=== PATIENT | male | born 1960 | race Caucasian/White ===

== ENCOUNTER 2020-08-09 15:12 | Outpatient (CLI) | payer MEDICARE, SELFPAY ==
[2020-08-09 15:31] LABS: Hematocrit 29.7 % (40.0-54.0); Hemoglobin 9.8 g/dL (14.0-18.0); Immature Platelet Fraction Pct 10.9 % (1.0-7.0); Mean Corpuscular Hemoglobin 34.9 pg (27.0-31.0); Mean Corpuscular Volume 105.7 fL (78.0-102.0); Platelet Count Result 51 K/mm3 (150-420); Red Blood Count 2.81 M/mm3 (4.70-6.10); Red Cell Distribution Width 17.1 % (11.6-14.4); White Blood Count 3.4 K/mm3 (4.8-10.8)
[2020-08-09 17:13] LABS: Band Neutrophils Percent 0 % (0-6); Basophils Absolute Manual 0.03 K/mm3 (0-0.1); Basophils Percent Manual 1 % (0-1); Eosinophils Absolute Manual 0.06 K/mm3 (0.02-0.5); Eosinophils Percent Manual 2 % (1-6); Lymphocytes Absolute Manual 1.39 K/mm3 (1.1-4.5); Lymphocytes Percent Manual 41 % (18-44); Monocytes Absolute Manual 1.05 K/mm3 (0.1-0.90); Monocytes Percent Manual 31 % (3-9); Neutrophils Absolute Manual 0.85 K/mm3 (1.3-6.7); Neutrophils Percent Manual 25 % (46-73); Platelet Estimate Decreased (Adequate); Total Cells Counted 100
== END 2020-08-09 15:13 | disposition home or self-care (01) ==
LOC: CHSLAB 15:16
PROVIDERS: Visit Provider Internal Medicine Hematology & Oncology
DX: C83.10 Mantle cell lymphoma, unspecified site (principal)
CPT/HCPCS: 36415; 85025; 85055